=== PATIENT | male | born 1970 | race Caucasian/White ===

== ENCOUNTER 2024-02-02 15:30 | Inpatient (IN) | payer MEDICAID ==
[~2024-02-02] VITALS: Ht 167.6 cm; Wt 95.6 kg
[2024-02-02] MEDS ORDERED: AMLO5TAB66 PO (15:48)
[2024-02-02] MEDS ORDERED: LISI-662 PO (15:48)
[2024-02-02] MEDS ORDERED: HYDR25TA PO (15:48)
[2024-02-02] MEDS: AmLODIPine BESYLATE 5 MG TABLET PO ONE (16:23)
[2024-02-02] MEDS: ACETAMINOPHEN 500 MG TABLET PO ONE (16:23)
[2024-02-02] MEDS: HydrALAZINE HCL 20 MG/ML VIAL IVP ONE (16:23)
[2024-02-02] MEDS: SODIUM CHLORIDE 0.9% 1,000 ML IV ONE ×2 (16:24→21:50)
[2024-02-02 16:34] LABS: BASOPHILS % (AUTO) 0.4 % (0.0-2.0); EOSINOPHILS % (AUTO) 0.3 % (1.0-6.0); HEMATOCRIT 51.3 % (41-53); LYMPHOCYTES # (AUTO) 1.8 K/uL (1.0-4.8); LYMPHOCYTES % (AUTO) 20.1 % (22.0-44.0); MEAN CORPUSCULAR HEMOGLOBIN 30.8 pg (26.0-34.0); MEAN CORPUSCULAR HGB CONC 35.1 G/dL (31.0-37.0); MEAN CORPUSCULAR VOLUME 88 fL (80-100); MONOCYTES # (AUTO) 0.6 K/uL (0.1-1.0); MONOCYTES % (AUTO) 6.6 % (2.0-9.0); NEUTROPHILS # (AUTO) 6.5 K/uL (1.8-7.7); NEUTROPHILS % (AUTO) 72.6 % (40.0-70.0); PLATELET COUNT (AUTO) 194 K/uL (150-450); RED BLOOD CELL COUNT(AUTO) 5.85 MIL/uL (4.50-5.90); RED CELL DISTRIBUTION WIDTH 13.8 % (11.5-14.5)
[2024-02-02 16:45] LABS: INR 1.1 (0.9-1.1); PROTHROMBIN TIME 11.3 SEC (9.4-11.6)
[2024-02-02 16:51] LABS: TROPONIN I-HIGH SENSITIVITY 16 ng/L (<76)
[2024-02-02 17:02] LABS: B-TYPE NATRIURETIC PEPTIDE 12 pg/mL (0-100)
[2024-02-02] MEDS ORDERED: SODIUM CHLORIDE 0.9% 100 ML ONE (17:08)
[2024-02-02] MEDS ORDERED: IOHEXOL 350 MG/ML 100 ML VIAL ONE (17:08)
[2024-02-02 17:10] LABS: ALANINE AMINOTRANSFERASE 209 U/L (12-78); ALBUMIN 3.2 g/dL (3.4-5.0); ALKALINE PHOSPHATASE 156 U/L (46-116); ANION GAP 9 mmol/L (8-16); ASPARTATE AMINOTRANSFERASE 91 U/L (15-37); BILIRUBIN,TOTAL 0.9 mg/dL (0.1-1.0); CALCIUM, TOTAL 8.9 mg/dL (8.8-10.5); CARBON DIOXIDE 29 mmol/L (22-29); CHLORIDE 96 mmol/L (98-107); CREATINE KINASE, TOTAL ONLY 98 U/L (39-308); CREATININE 0.88 mg/dL (0.60-1.30); GLOMERULAR FILTR. RATE CALC > 60 mL/min (>60); GLUCOSE,RANDOM 150 mg/dL (70-110); SODIUM SERUM 134 mmol/L (136-145); TOTAL PROTEIN, SERUM 9.2 g/dL (6.4-8.2); UREA NITROGEN, BLOOD 10 mg/dL (7-18)
[2024-02-02 17:11] LABS: POTASSIUM 2.8 mmol/L (3.5-5.1)
[2024-02-02] MEDS: NiCARDipine HCL 25 MG in SODIUM CHLORIDE 0.9% 240 ML IV PRN (17:29)
[2024-02-02] MEDS: METOCLOPRAMIDE HCL 5 MG/ML 2 ML VIAL IVP ONE (17:31)
[2024-02-02] MEDS: POTASSIUM CHL 10 MEQ/WATER 50 ML IV SCH (17:36)
[2024-02-02] MEDS: MORPHINE SULFATE 2 MG/ML SYRINGE IVP ONE (17:57)
[2024-02-02 18:07] LABS: COVID AG,FIA SOURCE NASAL SWAB
[2024-02-02 18:58] LABS: SARS-COV2 (COVID) ANTIGEN,FIA Negative (Negative)
[2024-02-02] MEDS ORDERED: ONDANSETRON HCL 4 MG/2 ML VIAL IVP PRN (19:45)
[2024-02-02] MEDS ORDERED: POTASSIUM CHL 10 MEQ/WATER 50 ML IV PRN (20:00)
[2024-02-02 21:30] VITALS: BP 144/85; PULSE 97; RESP 18; TEMP 98.6
[2024-02-02] MEDS ORDERED: ACETAMINOPHEN 325 MG TABLET ONE (21:47)
[2024-02-02] MEDS ORDERED: SODIUM CHLORIDE 0.9% 1,000 ML ONE (21:48)
[2024-02-02] MEDS: ACETAMINOPHEN 325 MG TABLET PO PRN (21:51)
[2024-02-02 22:30] VITALS: BP 145/88; RESP 21
[2024-02-02] MEDS ORDERED: POTASSIUM CHLORIDE 20 MEQ ER TABLET ONE (22:52)
[2024-02-02] MEDS: POTASSIUM CHLORIDE 20 MEQ ER TABLET PO PRN (22:54)
[2024-02-02] MEDS: DOCUSATE SODIUM 100 MG CAPSULE PO SCH (22:57)
[2024-02-03] VITALS: BP 156/89; PULSE 92; RESP 17; TEMP 98.3
[2024-02-03 04:00] VITALS: BP 138/86; PULSE 87; RESP 18; TEMP 98.4
[2024-02-03] MEDS: OxyCODONE HCL/ACETAMINOPHEN 5-325 MG TABLET PO PRN (05:43)
[2024-02-03 06:05] LABS: BASOPHILS % (AUTO) 0.3 % (0.0-2.0); EOSINOPHILS % (AUTO) 0.6 % (1.0-6.0); HEMATOCRIT 49.1 % (41-53); HEMOGLOBIN 16.9 g/dL (13.5-17.5); LYMPHOCYTES # (AUTO) 2.2 K/uL (1.0-4.8); LYMPHOCYTES % (AUTO) 22.7 % (22.0-44.0); MEAN CORPUSCULAR HEMOGLOBIN 30.6 pg (26.0-34.0); MEAN CORPUSCULAR HGB CONC 34.4 G/dL (31.0-37.0); MEAN CORPUSCULAR VOLUME 89 fL (80-100); MONOCYTES # (AUTO) 0.8 K/uL (0.1-1.0); MONOCYTES % (AUTO) 8.4 % (2.0-9.0); NEUTROPHILS # (AUTO) 6.7 K/uL (1.8-7.7); PLATELET COUNT (AUTO) 195 K/uL (150-450); RED BLOOD CELL COUNT(AUTO) 5.52 MIL/uL (4.50-5.90); RED CELL DISTRIBUTION WIDTH 13.9 % (11.5-14.5); WHITE BLOOD COUNT (AUTO) 9.9 K/uL (4.5-11.0)
[2024-02-03 06:08] LABS: ANION GAP 9 mmol/L (8-16); CALCIUM, TOTAL 8.5 mg/dL (8.8-10.5); CARBON DIOXIDE 28 mmol/L (22-29); CHLORIDE 102 mmol/L (98-107); GLOMERULAR FILTR. RATE CALC > 60 mL/min (>60); GLUCOSE,RANDOM 132 mg/dL (70-110); POTASSIUM 3.3 mmol/L (3.5-5.1); SODIUM SERUM 139 mmol/L (136-145); UREA NITROGEN, BLOOD 8 mg/dL (7-18)
[2024-02-03 08:00] VITALS: BP 139/85; PULSE 94; RESP 12; TEMP 98.8
[2024-02-03] MEDS: AmLODIPine BESYLATE 5 MG TABLET PO SCH (08:31)
[2024-02-03] MEDS: FAMOTIDINE 20 MG TABLET PO SCH (08:33)
[2024-02-03] MEDS: NiCARDipine HCL 25 MG in SODIUM CHLORIDE 0.9% 240 ML IV PRN (10:45)
[2024-02-03 12:00] VITALS: BP 136/86; PULSE 91; RESP 12; TEMP 98.9
[2024-02-03 16:00] VITALS: BP 142/88; PULSE 87; RESP 19; TEMP 98.2
[2024-02-03 20:00] VITALS: BP 149/92; PULSE 95; RESP 15; TEMP 98.6
[2024-02-04] VITALS: BP 153/85; PULSE 89; RESP 17; TEMP 98.4
[2024-02-04 04:00] VITALS: BP 150/83; PULSE 94; RESP 16; TEMP 98.7
[2024-02-04 05:53] LABS: BASOPHILS % (AUTO) 0.4 % (0.0-2.0); EOSINOPHILS % (AUTO) 0.6 % (1.0-6.0); HEMATOCRIT 48.5 % (41-53); HEMOGLOBIN 16.7 g/dL (13.5-17.5); LYMPHOCYTES # (AUTO) 2.1 K/uL (1.0-4.8); LYMPHOCYTES % (AUTO) 21.1 % (22.0-44.0); MEAN CORPUSCULAR HEMOGLOBIN 30.7 pg (26.0-34.0); MEAN CORPUSCULAR HGB CONC 34.5 G/dL (31.0-37.0); MEAN CORPUSCULAR VOLUME 89 fL (80-100); MONOCYTES # (AUTO) 0.8 K/uL (0.1-1.0); MONOCYTES % (AUTO) 7.6 % (2.0-9.0); NEUTROPHILS # (AUTO) 6.9 K/uL (1.8-7.7); NEUTROPHILS % (AUTO) 70.3 % (40.0-70.0); PLATELET COUNT (AUTO) 201 K/uL (150-450); RED BLOOD CELL COUNT(AUTO) 5.45 MIL/uL (4.50-5.90); RED CELL DISTRIBUTION WIDTH 13.7 % (11.5-14.5); WHITE BLOOD COUNT (AUTO) 9.9 K/uL (4.5-11.0)
[2024-02-04 06:05] LABS: ANION GAP 8 mmol/L (8-16); CALCIUM, TOTAL 8.2 mg/dL (8.8-10.5); CARBON DIOXIDE 28 mmol/L (22-29); CHLORIDE 103 mmol/L (98-107); CREATININE 0.81 mg/dL (0.60-1.30); GLOMERULAR FILTR. RATE CALC > 60 mL/min (>60); GLUCOSE,RANDOM 139 mg/dL (70-110); POTASSIUM 3.3 mmol/L (3.5-5.1); SODIUM SERUM 139 mmol/L (136-145); UREA NITROGEN, BLOOD 9 mg/dL (7-18)
[2024-02-04 08:00] VITALS: BP 152/91; PULSE 94; RESP 12; TEMP 99
[2024-02-04] MEDS: HydrALAZINE HCL 20 MG/ML VIAL IVP PRN (08:00)
[2024-02-04] MEDS: AmLODIPine BESYLATE 10 MG TABLET PO SCH (09:39)
[2024-02-04 12:00] VITALS: BP 158/99; PULSE 105; RESP 14; TEMP 96
[2024-02-04] MEDS: DEXAMETHASONE SOD PHOS 4 MG/ML VIAL IVP SCH (13:16)
[2024-02-04 16:00] VITALS: BP 142/86; PULSE 93; RESP 13; TEMP 97.3
[2024-02-04 20:00] VITALS: BP 137/75; PULSE 104; RESP 18; TEMP 98.5
[2024-02-05] VITALS (8 sets, daily range): BP systolic 126–153; BP diastolic 53–101; PULSE 79–110; RESP 11–19; TEMP 97.7–98.8
[2024-02-05 06:34] LABS: ANION GAP 10 mmol/L (8-16); CALCIUM, TOTAL 8.4 mg/dL (8.8-10.5); CARBON DIOXIDE 23 mmol/L (22-29); CHLORIDE 103 mmol/L (98-107); CREATININE 0.88 mg/dL (0.60-1.30); GLOMERULAR FILTR. RATE CALC > 60 mL/min (>60); GLUCOSE,RANDOM 155 mg/dL (70-110); POTASSIUM 4.3 mmol/L (3.5-5.1); SODIUM SERUM 136 mmol/L (136-145); UREA NITROGEN, BLOOD 13 mg/dL (7-18)
[2024-02-05] MEDS ORDERED: SODIUM CHLORIDE 0.9% 250 ML IV ONE (08:53)
[2024-02-05] MEDS: LOSARTAN POTASSIUM 25 MG TABLET PO SCH (12:05)
[2024-02-06 00:26] VITALS: BP 145/86; PULSE 90; RESP 18; TEMP 98
[2024-02-06 04:40] VITALS: BP 142/85; PULSE 142; RESP 18; TEMP 98.1
[2024-02-06 05:04] VITALS: BP 132/87; PULSE 85
[2024-02-06 07:38] VITALS: BP 128/84; PULSE 86; RESP 18; TEMP 98.1
[2024-02-06 08:24] LABS: BASOPHILS % (AUTO) 0.3 % (0.0-2.0); EOSINOPHILS % (AUTO) 0.2 % (1.0-6.0); HEMATOCRIT 48.6 % (41-53); HEMOGLOBIN 16.3 g/dL (13.5-17.5); LYMPHOCYTES # (AUTO) 1.8 K/uL (1.0-4.8); LYMPHOCYTES % (AUTO) 6.4 % (22.0-44.0); MEAN CORPUSCULAR HEMOGLOBIN 30.3 pg (26.0-34.0); MEAN CORPUSCULAR HGB CONC 33.6 G/dL (31.0-37.0); MEAN CORPUSCULAR VOLUME 90 fL (80-100); MONOCYTES # (AUTO) 1.1 K/uL (0.1-1.0); MONOCYTES % (AUTO) 3.8 % (2.0-9.0); NEUTROPHILS # (AUTO) 24.7 K/uL (1.8-7.7); PLATELET COUNT (AUTO) 293 K/uL (150-450); RED BLOOD CELL COUNT(AUTO) 5.39 MIL/uL (4.50-5.90); WHITE BLOOD COUNT (AUTO) 27.6 K/uL (4.5-11.0)
[2024-02-06 08:38] LABS: NEUTROPHILS % (AUTO) 89.3 % (40.0-70.0); RBC MORPHOLOGY COMMENT NORMAL RBC MORPH
[2024-02-06 08:40] LABS: ANION GAP 12 mmol/L (8-16); CALCIUM, TOTAL 8.5 mg/dL (8.8-10.5); CARBON DIOXIDE 23 mmol/L (22-29); CHLORIDE 101 mmol/L (98-107); CREATININE 0.96 mg/dL (0.60-1.30); GLOMERULAR FILTR. RATE CALC > 60 mL/min (>60); GLUCOSE,RANDOM 169 mg/dL (70-110); SODIUM SERUM 136 mmol/L (136-145); UREA NITROGEN, BLOOD 18 mg/dL (7-18)
[2024-02-06 11:10] VITALS: BP 142/94; PULSE 82; RESP 18; TEMP 97.9
[2024-02-06] MEDS ORDERED: AMLO-258 PO (11:26)
[2024-02-06] MEDS ORDERED: LOSA-381 PO (11:26)
[2024-02-06 12:16] LABS: BASOPHILS % (AUTO) 0.2 % (0.0-2.0); EOSINOPHILS % (AUTO) 0 % (1.0-6.0); HEMATOCRIT 46.9 % (41-53); HEMOGLOBIN 15.7 g/dL (13.5-17.5); LYMPHOCYTES % (AUTO) 7.7 % (22.0-44.0); MEAN CORPUSCULAR HEMOGLOBIN 30.1 pg (26.0-34.0); MEAN CORPUSCULAR HGB CONC 33.5 G/dL (31.0-37.0); MEAN CORPUSCULAR VOLUME 90 fL (80-100); MONOCYTES # (AUTO) 1.6 K/uL (0.1-1.0); MONOCYTES % (AUTO) 6.1 % (2.0-9.0); PLATELET COUNT (AUTO) 300 K/uL (150-450); RED BLOOD CELL COUNT(AUTO) 5.22 MIL/uL (4.50-5.90); RED CELL DISTRIBUTION WIDTH 14.2 % (11.5-14.5); WHITE BLOOD COUNT (AUTO) 25.5 K/uL (4.5-11.0)
[2024-02-06 12:49] LABS: RBC MORPHOLOGY COMMENT NORMAL RBC MORPH
[2024-02-06 13:24] LABS: APPEARANCE,URINE CLEAR (CLEAR); BILIRUBIN,URINE NEGATIVE (NEGATIVE); COLOR,URINE LIGHT YELLOW (YELLOW); GLUCOSE, URINE (UA) NEGATIVE (NEGATIVE); KETONES,URINE NEGATIVE (NEGATIVE); LEUKOCYTE ESTERASE ,URINE NEGATIVE (NEGATIVE); NITRATE,URINE NEGATIVE (NEGATIVE); OCCULT BLOOD,URINE NEGATIVE (NEGATIVE); PH,URINE 6.5 (5.0-8.0); PROTEIN,URINE NEGATIVE (NEGATIVE); SPECIFIC GRAVITIY, URINE 1.021 (1.003-1.030); UROBILINOGEN,URINE <=1.0 mg/dL (<=1.0)
== END 2024-02-06 16:00 | disposition home or self-care (01) | DRG 199 ==
LOC: EMS 15:30 → ICU 19:33 → 5S 02-05 12:30
PROVIDERS: ADMIT Internal Medicine; ATTEND Internal Medicine
DX: I16.1 Hypertensive emergency (principal); I61.5 Nontraumatic intracerebral hemorrhage, intraventricular; G93.6 Cerebral edema; E87.6 Hypokalemia; Z20.822 Contact with and (suspected) exposure to COVID-19; I10 Essential (primary) hypertension; Z91.128 Patient's intentional underdosing of medication regimen for other reason; Z91.199 Patient's noncompliance with other medical treatment and regimen due to unspecified reason
CPT/HCPCS: 70450; 70496; 70498; 70551; 71045; 80048; 80053; 81003; 82550; 83880; 84132; 84484; 85025; 85610; 85730; 87081; 92610; 93005; 93306; 97116; 97161; 97166; 97535; 99285; J0360; J1100; J2270; J2765; J3480; J3490; J7030; J7050; Q9967; 36415-L1; 36415-TC